=== PATIENT | male | born 1965 | race Caucasian/White ===

== ENCOUNTER 2018-02-15 09:29 | Emergency (ER) | payer OTHER, SELFPAY ==
[2018-02-15 09:30] VITALS: BP 157/92; PULSE 88; RESP 16; TEMP 36.4; O2SAT 95; BMI 28.5
--- NOTE | 2018-02-15 09:40 | EKG12_ITS ---
Test Reason : ABD PAIN Blood Pressure : / mmHG Vent. Rate : 076 BPM Atrial Rate : 076 BPM P-R Int : 160 ms QRS Dur : 082 ms QT Int : 346 ms P-R-T Axes : 019 035 014 degrees QTc Int : 389 ms Normal sinus rhythm Normal ECG Confirmed by AISSATOU COLE, RONNIE ([id number]), mapping editor BRE RENAE ([id number] on 02/21/2018 9:19:29 AM Referred By: DRAGAN Confirmed By:RONNIE REYEZ MD
--- NOTE | 2018-02-15 09:41 | US_ITS ---
STUDY: ABDOMINAL ULTRASOUND - RIGHT UPPER QUADRANT REASON FOR VISIT: Male, 52 years old. Right upper quadrant pain. TECHNIQUE: Ultrasound evaluation of the right upper quadrant was performed with real-time and static nichols-scale imaging. TECHNICAL QUALITY: Limited. Examination limited by bowel gas. COMPARISON: None. FINDINGS: Liver: The liver measures 13.1 cm. There is normal echogenicity of the liver. The bile ducts are within normal limits. There is hepatic color flow. The direction of portal flow is hepatopetal. There is no demonstrated mass lesion. Gallbladder: Normal distended gallbladder. The gallbladder wall measures 2 mm. There is a negative sonographic Osuna's sign. There is no pericholecystic fluid. There are no gallstones. Common Bile Duct (C.B.D.): The common bile duct measures 2 mm. Pancreas: Normal size of the head, body and tail of the pancreas. There is normal echogenicity of the pancreas. There is no demonstrated pancreatic mass or cyst. Right Kidney: Normal size of the right kidney. The right kidney measures 11.8 cm. Normal renal cortex. The right cortex measures 2.1 cm. There is 2.6 cm cyst. There is no right hydronephrosis. US/Gallbladder IMPRESSION: No gallstones or biliary dilatation. Right renal cyst. Electronically Signed: Washington Parish MD at 10:58 EDT , Service support ,
--- NOTE | 2018-02-15 09:46 | ED.DCSUM_ITS ---
- ER Visit Summary Date of Service: 02/15/18 Chief Complaint: Upper abdominal pain that awoke patient at 0100 History of Present Illness: The patient is a 52 M who presents with upper abdominal pain radiating through to his back that awoke him at 0100. He states he had tater tot casserole for dinner. He has not had any eat since 2300. He has a remote history of GERD 25 years ago. He denies nausea, vomiting, diarrhea , black or maroon stool. He denies chest pain, shortness of breath, dyspnea on exertion, orthopnea or PND. He denies any exertional symptoms. He denies symptoms of claudication. There is a strong family history of gallbladder disease. He denies any fever, chills night sweats. He denies any ocular, visual or auditory symptoms. He denies any urologic symptoms. He denies leg pain, swelling discoloration. Physical Examination: Vital signs are remarkable for an elevated blood pressure 157/92. He appears uncomfortable. HEENT exam is unremarkable. Heart is regular without murmur, gallop or rub. S1 and S2 are normal. Lungs are clear to auscultation with good movement of air bilaterally. There is no reproducible chest pain. Abdomen is remarkable for tenderness in the epigastric right upper quadrant with a clinical Osuna sign. Bowel sounds are increased. There are no peritoneal findings. There is no CVA tenderness noted. There is no asymmetry, swelling, discoloration, leg vein distention, palpable cords or tenderness along the distribution of the deep venous system. DP and PT pulses are 2+ and palpable. Neuro exam is nonfocal. Test Results: CBC is unremarkable. Hepatic profile is unremarkable. Lipase is 616 which is approximately 1-1/2 times normal. Ultrasound revealed normal gallbladder and common bile duct. The pancreas was visualized and normal. EKG is normal. Emergency Department Course and Treatment: IV was established. He declined pain medicine. CMP, CBC and lipase were ordered. Since he has not had anything to eat since last evening and ultrasound was ordered to evaluate for biliary disease. EKG was obtained to evaluate for acute ischemia in the event this is an atypical presentation for cardiac disease Treatment Plan: Since patient workup to this point is unremarkable. He was given GI cocktail. He was reassessed approximately 30 minutes after administration of GI cocktail and his pain resolved. Disposition: Discharged to home with prescription for Pepcid Impression: Upper abdominal pain secondary to esophagitis/gastritis This note was generated with [employer] dictation software. It may contain incorrect words, spelling, and punctuation that were not noted in review of the chart prior to signing ED Disposition - Plan for ED Patient: Disposition: Home or Assisted Living Chief Complaint: Abd Pain Instructions: ED Epigastric Pain [facility] Prescriptions: Famotidine [Pepcid] 40 mg PO DAILY #30 tab Referrals: Vivek Hill MD [Primary Care Provider] - 1 Week if not improving
[2018-02-15 10:01] LABS: Absolute Lymphocyte Count 0.78 X10^3/ul (0.83-4.51); Absolute Neutrophil Count 7.5 X10^3/uL (2.0-7.7); Basophil# 0.02 X10^3/uL; Basophil% 0.2 % (0-1); Eosinophil# 0.05 X10^3/uL; Eosinophils% 0.5 % (0-5); Hematocrit 44.6 % (40-54); Lymphocyte # 0.78 X10^3/ul (4.0); Lymphocyte % 8.5 % (19-41); Mean Corp Hgb Conc 33.6 g/gl (32-36); Mean Corpuscular Volume 83.4 fL (80-94); Mean Platelet Vol. 8.4 fl (6.2-12.0); Monocyte# 0.88 X10^3/uL; Monocyte% 9.6 % (0-10); Neutrophil # 7.46 X10^3/uL (2.7-7.7); Neutrophil % 81.1 % (47-70); POSITIVE COUNT NO; POSITIVE DIFFERENTIAL NO; POSITIVE MORPHOLOGY NO; Platelet Count 203 K/mm3 (150-450); RBC Distribution Width CV 13.2 % (11.6-14.6); RBC Distribution Width SD 39.8 fl (35.1-43.9); Red Blood Count 5.35 M/mm3 (4.6-6.2); White Blood Count 9.2 K/mm3 (4.4-11.0)
[2018-02-15 10:15] LABS: ALB/GLOB Ratio 1.2 RATIO (0.9-2.4); AST(SGOT) 29 U/L (15-37); Alanine Aminotransfer ALT/SGPT 51 U/L (16-61); Alkaline Phosphatase 59 U/L (45-117); Anion Gap 7 (5-15); BUN 23 mg/dL (7-18); BUN/Creat Ratio 19.8 RATIO (10-20); Calcium,Total 9.6 mg/dL (8.5-10.1); Chloride 106 mmol/L (98-107); Creatinine, Serum 1.16 mg/dL (0.70-1.30); EST Glomerular Filtration Rate 70 mL/min (>60); Est Glom Filt Rate - Afr Amer 84 mL/min (>60); Estimated Creatinine Clearance 75.17 ml/min; Globulin 3.4 g/dL (2.2-4.2); Glucose 112 mg/dL (74-106); Lipase 616 U/L (73-393); Potassium 4.7 mmol/L (3.5-5.1); Protein, Total 7.4 g/dL (6.4-8.2); Sodium Level 141 mmol/L (136-145)
[2018-02-15 11:48] VITALS: BP 145/91; PULSE 84; RESP 18; O2SAT 97
== END 2018-02-15 11:49 | disposition home or self-care (01) ==
PROVIDERS: Emergency Provider Emergency Medicine; Family Provider Internal Medicine; PCP Internal Medicine
DX: R10.10 Upper abdominal pain, unspecified (principal); K29.70 Gastritis, unspecified, without bleeding; K20.9 Esophagitis, unspecified; I10 Essential (primary) hypertension; Z87.19 Personal history of other diseases of the digestive system; Z79.899 Other long term (current) drug therapy
CPT/HCPCS: 76705; 80053; 83690; 85025; 93005; 99284; A4216

== ENCOUNTER 2019-02-13 06:42 | Emergency (ER) | payer OTHER, SELFPAY ==
[2019-02-13 06:42] VITALS: BP 156/93; PULSE 93; RESP 18; TEMP 37.2; O2SAT 95; BMI 28.2
[2019-02-13 06:47] VITALS: BP 156/93; PULSE 93; RESP 18; TEMP 37.2; O2SAT 95
--- NOTE | 2019-02-13 07:16 | ED.DCSUM_ITS ---
- ER Visit Summary Date of Service: 02/13/19 Chief Complaint: Sick History of Present Illness: The patient is a 53 M who has not been feeling well for the past 3 days. He has fevers and body aches. He feels fatigued. T-max was 101.7 today. He noticed a rash to his right proximal thigh for the last few days as well. Denies any tick bites. Denies neck pain or stiffness. Denies any upper respiratory symptoms. He has an occasional cough but denies any other respiratory symptoms. Denies any chest pain. Denies GI symptoms. Denies urinary symptoms. Denies focal joint pain. Denies any other rashes. Denies any recent illnesses or hospitalizations. Physical Examination: Patient is afebrile and vital signs are unremarkable. He is sitting comfortably and appears in no acute distress. Alert and oriented. HEENT exam unremarkable. Neck shows good range of motion. Heart regular. Lungs clear. Abdomen soft. Patient has a target lesion in to his right proximal and anterior thigh measuring approximately 5 cm in total diameter. No induration or fluctuance. No other rashes noted. No insect bites or tick bites noted on skin exam. Cranial nerves grossly intact. Moves all extremities. Test Results: CBC and BMP were ordered. Blood cultures and Lyme screen pending. Emergency Department Course and Treatment: Patient has fevers, body aches, and erythema migrans. I am concerned for stage 1 Lyme disease. We will also consider other infectious causes. I checked basic blood work and cultures. Patient is not having any symptoms consistent with [employer] infection, respiratory, GI, or infections. Patient was treated with doxycycline. Labs were unremarkable. Cultures and Lyme testing is pending. I believe the patient is appropriate for outpatient care. Will start doxycycline twice daily for 21 days to cover for Lyme. Patient was advised to follow-up with his doctor for his results and for recheck. He may need additional evaluation or testing if he has new or different symptoms. He may also be able to discontinue his antibiotics if his testing is negative and he is improved. Will defer to primary care. Patient will return if he has any new or worsening issues. Treatment Plan: As above Disposition: Discharge Impression: 1. Fevers 2. Erythema migrans This note was generated with [employer] software. It may contain incorrect words, spelling, and punctuation that were not noted in review of the chart prior to signing ED Disposition - Plan for ED Patient: Referrals: Vivek Hill MD [Primary Care Provider] -
[2019-02-13] MEDS: Doxycycline 100 MG CAPSULE PO (07:28)
[2019-02-13 07:32] LABS: Lyme Ab Screen Interpretation REF LAB
[2019-02-13 07:49] LABS: Absolute Lymphocyte Count 0.42 X10^3/ul (0.83-4.51); Absolute Neutrophil Count 4.4 X10^3/uL (2.0-7.7); Anion Gap 2 (5-15); BUN 15 mg/dL (7-18); BUN/Creat Ratio 12.5 RATIO (10-20); Basophil# 0.02 X10^3/uL; Basophil% 0.3 % (0-1); Calcium,Total 9.4 mg/dL (8.5-10.1); Chloride 103 mmol/L (98-107); EST Glomerular Filtration Rate 67 mL/min (>60); Eosinophil# 0.01 X10^3/uL; Eosinophils% 0.2 % (0-5); Est Glom Filt Rate - Afr Amer 81 mL/min (>60); Estimated Creatinine Clearance 71.82 ml/min; Glucose 116 mg/dL (74-106); Hemoglobin 16.2 g/dl (13.0-16.5); Lymphocyte # 0.42 X10^3/ul (4.0); Lymphocyte % 7.1 % (19-41); Mean Corp Hgb Conc 34.5 g/gl (32-36); Mean Corpuscular Hgb 27.5 pg (27.0-32.0); Mean Corpuscular Volume 79.8 fL (80-94); Mean Platelet Vol. 8.8 fl (6.2-12.0); Monocyte# 1.07 X10^3/uL; Monocyte% 18.2 % (0-10); Neutrophil # 4.35 X10^3/uL (2.7-7.7); Platelet Count 193 K/mm3 (150-450); RBC Distribution Width CV 13.3 % (11.6-14.6); Red Blood Count 5.89 M/mm3 (4.6-6.2); Sodium Level 133 mmol/L (136-145); White Blood Count 5.9 K/mm3 (4.4-11.0)
[2019-02-13 07:56] LABS: Differential Indicated SCAN CRITERIA MET; POSITIVE COUNT NO; POSITIVE DIFFERENTIAL YES; POSITIVE MORPHOLOGY NO
--- NOTE | 2019-02-13 08:10 | ED.DEP ---
ED Disposition - Plan for ED Patient: Instructions: ED Fever Unconf Cause, ED Lyme Disease Prescriptions: Doxycycline 100 mg PO BID 21 Days #42 cap Referrals: Vivek Hill MD [Primary Care Provider] -
[2019-02-13 08:23] VITALS: BP 126/74; PULSE 62; RESP 15; O2SAT 98
[2019-02-15 15:26] LABS: Lyme Scn Total Ab w/Rflx <0.91 ISR (0.00-0.90)
== END 2019-02-13 08:24 | disposition home or self-care (01) ==
LOC: ED 07:28
PROVIDERS: Emergency Provider Emergency Medicine; Family Provider Internal Medicine; PCP Internal Medicine
DX: R50.9 Fever, unspecified (principal); A26.0 Cutaneous erysipeloid; R05 Cough; K21.9 Gastro-esophageal reflux disease without esophagitis; I10 Essential (primary) hypertension
CPT/HCPCS: 80048; 85025; 86618; 87040; 99284; A4216